=== PATIENT | female | born 2000 | race Hispanic/Latino ===

== ENCOUNTER 2025-01-06 22:49 | Emergency (ER) | payer OTHER ==
[~2025-01-06] VITALS: Ht 170.2 cm; Wt 81.8 kg
--- NOTE | 2025-01-06 22:50 | NUR ---
UA CUP PROVIDED
[2025-01-06 23:06] VITALS: BP 115/75; PULSE 87; RESP 19; TEMP 98.8; O2SAT 98
[2025-01-06 23:33] LABS: ADD UA MICROSCOPIC YES; APPEARANCE,URINE CLEAR (CLEAR); GLUCOSE, URINE (UA) NEGATIVE (NEGATIVE); LEUKOCYTE ESTERASE ,URINE NEGATIVE Leu/uL (NEGATIVE); NITRATE,URINE NEGATIVE (NEGATIVE); OCCULT BLOOD,URINE MODERATE (NEGATIVE)
[2025-01-06 23:35] LABS: SQUAMOUS EPITHELIAL CELL,UR FEW /HPF (0-2)
[2025-01-06 23:36] LABS: HCG,QUALITATIVE URINE NEGATIVE (NEGATIVE)
--- NOTE | 2025-01-06 23:55 | ERN ---
ED Note History of Present Illness Stated Complaint: BLOOD IN UA, PELVIC PAIN Chief Complaint: Blood in Urine: Time Seen by MD: 23:01 Time Seen by Midlevel: 23:02 Dictation: 24-year-old female presents to the emergency department due to reported having some mild urinary frequency that began approximately 2 days ago. She states that it has been going off and on since the onset of the symptoms. Currently, there is no report of any fever, chills, nausea, vomiting, abdominal pain, flank pain, vaginal bleeding or vaginal discharge associated with this. She states that she is concerned that she might have a urinary tract infection. Upon initial evaluation, the patient presents in no acute distress. Allergies: Coded Allergies: No Known Allergies (Unverified Allergy, Unknown, 01/06/25) Emergency Care BAGGER MEAT: None Past Medical History Past Medical History: UTI Surgical History: None PSYCH History: no pertinent psych hx History: Not Applicable LMP: Dec 15, 2024 RN Note Reviewed/Agreed w/PFSH: Yes Review of System Dictation : Urinary frequency Initial Vital Sign VS Vital Signs Date Time Temp Pulse Resp B/P (MAP) Pulse Ox O2 Delivery O2 Flow Rate FiO2 01/06/25 22:50 99.3 91 20 136/89 100 Room Air 01/06/25 23:06 0 21 Physical Exam Dictation General: awake, alert, NAD Head/Face: Normocephalic, atraumatic Eyes: PERRL, EOMI ENT: Oral mucosa moist Neck: Trachea midline, supple Cardiovascular: RRR, no edema Respiratory: Symmetrical, non-labored Abdomen: Soft, non-tender, non-distended, no guarding. Skin: Warm, dry, good turgor, no rash MS/Extremity: Pulses equal, no cyanosis, neurovascular intact, FROM Neuro: COAx4, GCS 15, steady gait, Psych: Normal behavior, mood, and affect normal Results (Laboratory/Radiology) Laboratory/Radiology Laboratory Tests Test 01/06/25 23:25 Urine Color LIGHT-YELLOW (YELLOW) Urine Appearance CLEAR (CLEAR) Urine pH 6.0 (5.0-8.0) Urine Specific [place] 1.027 (1.001-1.031) Urine Protein NEGATIVE mg/dL (NEGATIVE) Urine Glucose (UA) NEGATIVE mg/dL (NEGATIVE) Urine Ketones NEGATIVE mg/dL (NEGATIVE) Urine Occult Blood MODERATE (NEGATIVE) H Urine Nitrate NEGATIVE (NEGATIVE) Urine Bilirubin NEGATIVE mg/dL (NEGATIVE) Urine Urobilinogen 0.2 mg/dL (0.2-1.0) Urine Leukocyte Esterase NEGATIVE Nhi/uL Urine RBC 2-5 /HPF (0-1) H Urine WBC 0-1 /HPF (0-1) Urine Squamous Epithelial Cells FEW /HPF (0-2) Urine Bacteria None /HPF (None Seen) Urine HCG, Qualitative NEGATIVE (NEGATIVE) Labs Reviewed?: Yes ED Course ED Course Orders Procedure Category Date Status Time Urinalysis Profile LAB 01/06/25 Complete 23:01 ,Urine Test LAB 01/06/25 Complete 23:01 Vital Signs Date Time Temp Pulse Resp B/P (MAP) Pulse Ox O2 Delivery O2 Flow Rate FiO2 01/06/25 23:06 98.8 87 19 115/75 98 Room Air* 0 21 01/06/25 22:50 99.3 91 20 136/89 100 Room Air Medical Decision Making MDM MDM: Differential diagnosis: Urinary frequency, , acute UTI. Rationale: Tests considered and ordered secondary to shared decision making include: Previous outside records reviewed: Old ER visits. Risk of complication and/or morbidity or mortality of patient management: None Medications-Per medication reconciliation Need for hospitalization: Patient does not meet criteria for hospitalization. Need for emergency major/minor surgery: No There are no social concerns with this patient. Prescription drug management Prescriptions will include symptomatic care Patient's prior external medical records from other ER visits were reviewed by me as indicated. Prior testing and results from previous visits were reviewed. Prior tests were taken into account with medical decision making and resource utilization, independent historian/historians were used to obtain complete medical history. I independently interpreted the test that were performed, results were reviewed by me and considered findings on radiology if ordered. Medical management and examination interpretation discussions were had by me with other qualified healthcare professionals as indicated for the patient's care. DX & DISP Disposition: Discharge Departure Impression: Primary Impression: Dysuria Condition: Stable Referrals: SELF,REFERRAL (PCP) Time of Disposition: 23:55 SHANICE ALEXANDRE Jan 06, 2025 23:55
== END 2025-01-07 00:09 | disposition home or self-care (01) ==
LOC: EDH 22:49
DX: R30.0 Dysuria (principal); Z87.440 Personal history of urinary (tract) infections
CPT/HCPCS: 81001; 81025; 99283